=== PATIENT | female | born 1940 | race Hispanic/Latino ===

== ENCOUNTER 2018-08-30 20:19 | Emergency (ER) | payer MEDICARE ==
[2018-08-30 20:20] VITALS: BMI 25.8
[2018-08-30 20:44] VITALS: RESP 18; O2SAT 100
[2018-08-30] MEDS ORDERED: TDAP Vaccine 0.5 mL Syr IM ONE (21:43)
[2018-08-30] MEDS ORDERED: Lidocaine 1% Inj (20ml) IJ STA (21:51)
--- NOTE | 2018-08-30 22:50 | ED PDOC ---
Arrival/HPI - General Historian: Patient - History of Present Illness Narrative History of Present Illness (Text): 08/30/18 23:51 78-year-old female presents the emergency room after she sustained a laceration to her left second digit when she was opening a can. Reports no numbness, decrease in range of motion, or any other injury. Has no other complaints. States her tetanus is not up to date. <Destinee Lepe PA-C - Last Filed: 08/30/18 23:50> <Adonis Castillo - Last Filed: 08/31/18 00:15> - General Chief Complaint: Abnormal Skin Integrity Time Seen by Provider: 08/30/18 20:48 Past Medical History - Infectious Disease Hx of Infectious Diseases: None - Tetanus Immunization Tetanus Immunization: Unknown - Cardiac Hx Cardiac Disorders: Yes Hx Hypertension: Yes - Pulmonary Hx Respiratory Disorders: No - Neurological Hx Neurological Disorder: No - HEENT Hx HEENT Disorder: Yes () - Renal Hx Renal Disorder: No - Endocrine/Metabolic Hx Endocrine Disorders: No - Hematological/Oncological Hx Blood Disorders: No - Integumentary Hx Dermatological Disorder: No - Musculoskeletal/Rheumatological Hx Musculoskeletal Disorders: No - Gastrointestinal Hx Gastrointestinal Disorders: Yes (rectal bleeding, hemorrhoids) Other/Comment: colon polyp - Genitourinary/Gynecological Hx Genitourinary Disorders: No - Psychiatric Hx Psychophysiologic Disorder: Yes Hx Anxiety: Yes Hx Substance Use: No - Surgical History Hx Cardiac Catheterization: Yes (2006) Other/Comment: colon resection, right breast lumpectomy, colonoscopy 2009, and 10/10, found lg cecal polyp 10/10 ws removed today, polypectomy 04/13/14 - Anesthesia Hx Anesthesia: Yes Hx Anesthesia Reactions: No Hx Malignant Hyperthermia: No - Suicidal Assessment Feels Threatened In Home Enviroment: No <Destinee Lepe PA-C - Last Filed: 08/30/18 23:50> Family/Social History Family/Social History: No Known Family HX Smoking Status: Former Smoker Hx Alcohol Use: Yes Hx Substance Use: No Hx Substance Use Treatment: No <Destinee Lepe PA-C - Last Filed: 08/30/18 23:50> Allergies/Home Meds <Destinee Lepe PA-C - Last Filed: 08/30/18 23:50> <Adonis Castillo - Last Filed: 08/31/18 00:15> Allergies/Adverse Reactions: Allergies No Known Allergies Allergy (Verified 01/10/15 18:21) Home Medications: Home Meds Medication Instructions Recorded Confirmed Losartan [Cozaar] 1 tab PO DAILY 04/06/18 04/06/18 Review of Systems - Review of Systems Constitutional: absent: Fatigue, Fevers Musculoskeletal: absent: Arthralgias, Joint Swelling Skin: Laceration. absent: Rash, Skin Lesions <Destinee Lepe PA-C - Last Filed: 08/30/18 23:50> Physical Exam - Physical Exam Narrative Physical Exam (Text): 08/30/18 23:52 GENERAL APPEARANCE: Patient is awake, alert, oriented x 3, in no acute distress. SKIN: Warm, (-) rash, (-) lesions. UPPER EXTREMITY: (-) Tenderness, (-) swelling, (-) ecchymosis, (+) 2 cm V shaped laceration to the distal volar L 2nd digit with mild active bleeding; (-) crepitus, (-) deformity. Tendon function intact. (-) distal neurovascular deficit. 2 point discrimination intact. Remainder of hand, digits and wrist: (-) injury. Vital Signs Temp Pulse Resp BP Pulse Ox 08/30/18 20:41 98.2 F 68 18 191/84 H 100 <Destinee Lepe PA-C - Last Filed: 08/30/18 23:50> Vital Signs Temp Pulse Resp BP Pulse Ox 08/30/18 20:41 98.2 F 68 18 191/84 H 100 <Adonis Castillo - Last Filed: 08/31/18 00:15> Medical Decision Making ED Course and Treatment: 08/30/18 23:53 Plan : - tdap IM - laceration repair The wound is L 2nd digit measures ~2cm. The wound was copiously irrigated with normal saline. The wound was prepped and draped in the normal sterile fashion. The wound was explored for foreign bodies and none were found. The wound was anesthetised using lidocaine. The edges were reapproximated using 4, 5-0 nylon sutures by TEDDY. Bleeding was well controlled and the patient tolerated the procedure well. Advised to follow up with primary care physician in 1-2 days without fail for wound check and to have sutures removed after 7 days. Advised on proper wound care. Return to the emergency room at any time for any new or worsening symptoms. Patient states she fully agrees with and understands discharge instructions. States that she agrees with the plan and disposition. Verbalized and repeated discharge instructions and plan. I have given the patient opportunity to ask any additional questions. - Medication Orders Current Medication Orders: Discontinued Medications Acetaminophen (Tylenol 325mg Tab) 975 mg PO STAT STA Stop: 08/30/18 21:44 Lidocaine HCl (Lidocaine 1% (20ml)) 5 ml IJ STAT STA Stop: 08/30/18 21:52 Tetanus/Reduced Diphtheria/Acell Pertussis (Boostrix Vaccine Inj) 0.5 ml IM .ONCE ONE Stop: 08/30/18 21:44 <Destinee Lepe PA-C - Last Filed: 08/30/18 23:50> - Medication Orders Current Medication Orders: Discontinued Medications Acetaminophen (Tylenol 325mg Tab) 975 mg PO STAT STA Stop: 08/30/18 21:44 Last Admin: 08/30/18 23:06 Dose: 975 mg Lidocaine HCl (Lidocaine 1% (20ml)) 5 ml IJ STAT STA Stop: 08/30/18 21:52 Last Admin: 08/30/18 23:09 Dose: 5 ml Comments: GIVEN TO TEDDY LAIRD Tetanus/Reduced Diphtheria/Acell Pertussis (Boostrix Vaccine Inj) 0.5 ml IM .ONCE ONE Stop: 08/30/18 21:44 Last Admin: 08/30/18 23:07 Dose: 0.5 ml Immunization Registry Document 08/30/18 23:07 RG (Rec: 08/30/18 23:07 RG [id number]) [facility]-Date provided 08/30/18 <Adonis Castillo - Last Filed: 08/31/18 00:15> - PA / ORDER PACKER OR PACKAGER / Resident Statement NICOL has reviewed & agrees with the documentation as recorded. <Destinee Lepe PA-C - Last Filed: 08/30/18 23:50> - PA / ORDER PACKER OR PACKAGER / Resident Statement NICOL has reviewed & agrees with the documentation as recorded. NICOL has examined the patient and agrees with the treatment plan. <Adonis Castillo - Last Filed: 08/31/18 00:15> Disposition/Present on Arrival - Present on Arrival Any Indicators Present on Arrival: No History of DVT/PE: No History of Uncontrolled Diabetes: No Urinary Catheter: No History of Decub. Ulcer: No History Surgical Site Infection Following: None - Disposition Have Diagnosis and Disposition been Completed?: Yes Disposition Time: 22:30 Patient Plan: Discharge <Destinee Lepe PA-C - Last Filed: 08/30/18 23:50> <Adonis Castillo - Last Filed: 08/31/18 00:15> - Disposition Diagnosis: Finger laceration Disposition: HOME/ ROUTINE Patient Problems: Current Active Problems Problem Status Onset Finger laceration Acute Condition: STABLE Discharge Instructions (ExitCare): Wound Care, Laceration Repair With Stitches (DC) Additional Instructions: Thank you for letting us take care of you today. You were treated for finger laceration. The emergency medical care you received today was directed at your acute symptoms. Clean wound daily with regular soap and water. Have sutures removed after 7 days. Return to the Emergency Department if your symptoms worsen, do not improve, or if you have any other problems. Please contact your doctor in 2 days for re-evaluation and follow up. Bring any paperwork you were given at discharge with you along with any medications you are taking to your follow up visit. Our treatment cannot replace ongoing medical care by a primary care provider (PCP) outside of the emergency department. Thank you for allowing the [facility] team to be part of your care today. Referrals: Carrington Larry MD [Primary Care Provider] - Follow up with primary Forms: [employer] (Ma[place])
[2018-08-31 05:29] VITALS: BP 182/76; PULSE 65; TEMP 98.1
== END 2018-08-30 23:50 | disposition home or self-care (01) ==
LOC: ED 20:19
DX: S61.211A Laceration without foreign body of left index finger without damage to nail, initial encounter (principal); W26.8XXA Contact with other sharp object(s), not elsewhere classified, initial encounter; I10 Essential (primary) hypertension; Z87.891 Personal history of nicotine dependence; Z23 Encounter for immunization